=== PATIENT | female | born 1950 | race Caucasian/White ===

== ENCOUNTER → 2017-11-03 | Outpatient (CLI) | payer OTHER ==
[~2017-11-03] MED LIST: BIOTIN5000 MCG PO; BUMETANIDE2 M1 PO; CIMZIA400 MG IM; CIPROFLOXACIN500 M1 PO; FLAGYL500 MG PO; FOLIC ACID1 MG PO; GABAPENTIN 100100 MG PO; GLUCOSA-CHOND-1 EACH PO; HYDROCODONE-APA1 TA1 PO; LOVASTATIN 20 M20 MG PO; MAGNESIUM100 MG PO; METHOTREXATE 22.5 MG PO; MOBIC7.5 MG PO; NORCO 5-325 TA1 EACH PO; PERCOCET PO; POTASSIUM99 M1 PO; PROBIOTIC1 EAC1 PO; PROTONIX40 M1 PO; REQUIP0.5 MG PO; SPIRONOLACTONE25 M1 PO; TUMS PO; VANCOCIN 125 M125 M1 PO; VITAMIN B-12500 MCG PO; XARELTO10 MG PO; ZOFRAN ODT4 MG SUBLING
== END ==
LOC: M.MRI 06:42
DX: S83.232A Complex tear of medial meniscus, current injury, left knee, initial encounter (principal); S83.282A Other tear of lateral meniscus, current injury, left knee, initial encounter; X58.XXXA Exposure to other specified factors, initial encounter; Y93.89 Activity, other specified; Y92.89 Other specified places as the place of occurrence of the external cause; Y99.8 Other external cause status

== ENCOUNTER 2017-12-01 06:40 | Inpatient (IN) | payer OTHER ==
[2017-11-17 11:11] LABS: HEMATOCRIT 36.9 % (37.0-47.0); HEMOGLOBIN 11.9 gm/dL (12.0-15.0); MCH 26.2 pg (26.0-34.0); MCHC 32.2 g/dL (28.0-37.0); MCV 81.3 fL (80.0-100.0); MPV 7.1 fl. (7.2-11.1); RBC 4.54 mil/uL (4.20-5.00)
[2017-11-17 11:17] LABS: URINE BILIRUBIN NEGATIVE (Negative); URINE BLOOD NEGATIVE (Negative); URINE CLARITY CLEAR; URINE COLOR YELLOW; URINE GLUCOSE-RANDOM NEGATIVE (Negative); URINE KETONES NEGATIVE (Negative); URINE LEUKOCYTES-REFLEX 1+ (Negative); URINE NITRITE-REFLEX NEGATIVE (Negative); URINE PROTEIN NEGATIVE (Negative); URINE UROBILINOGEN 0.2 E.U./dl (0.2-1.0)
[2017-11-17 11:19] LABS: PROTIME 9.4 Seconds (9.20-11.50)
[2017-11-17 11:29] LABS: ALBUMIN 3.7 g/dL (3.4-5.0); CALCIUM 9.7 mg/dL (8.5-10.1); CREATININE 0.9 mg/dL (0.6-1.3); POTASSIUM 3.6 mmol/L (3.5-5.1); TOTAL BILIRUBIN 0.3 mg/dL (<0.1-1.0); TOTAL PROTEIN 7.2 g/dL (6.4-8.2)
[2017-11-17 11:37] LABS: BACTERIA-REFLEX 1-9 Few /HPF (None Seen); CASTS None Seen /LPF (None Seen); CRYSTALS None Seen /LPF (None Seen); MUCUS None Seen strn/LPF (None Seen); SQUAMOUS 4-10 Moderate /LPF (0-3); URINE RBC 0-2 Rare /HPF (0-2); URINE WBC-REFLEX 6-15 Few /HPF (0-5)
--- NOTE | 2017-11-18 13:35 | EKG ---
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: : 1950 Requested By: Oscar Miller Order Number: [id number] Richard MD: Dat Rahman Measurements Intervals [place] Rate: 83 P: 37 UT: 162 QRS: -21 QRSD: 92 T: 28 QT: 379 QTc: 446 Interpretive Statements Sinus rhythm Left ventricular hypertrophy, bivoltage Compared to ECG 04/06/2016 11:32:31 Early repolarization no longer present Electronically Signed On 11-18-2017 13:35:00 CDT by Dat Rahman [email or web address] <ELECTRONICALLY SIGNED> By: Dat Rahman MD, [facility] 11/18/17 1335 D: [id number] 20 Dat Rahman MD, FACC /EPI
[~2017-12-01] VITALS: Ht 160 cm; Wt 102.1 kg
[~2017-12-01 06:40] MED LIST changes: -PERCOCET PO; -XARELTO10 MG PO
[2017-12-01 07:27] VITALS: BP 129/62
[2017-12-01 11:30] VITALS: BP 125/55
[2017-12-01 12:01] VITALS: BP 125/55
[2017-12-01 16:13] VITALS: BP 117/47
[2017-12-01 20:45] VITALS: BP 123/64
[2017-12-02] VITALS: BP 117/45
[2017-12-02 04:21] VITALS: BP 128/56
[2017-12-02 04:46] LABS: HEMOGLOBIN 10.4 gm/dL (12.0-15.0)
[2017-12-02 08:00] VITALS: BP 118/62
[2017-12-02] MEDS ORDERED: PERCOCET PO (08:32)
[2017-12-02] MEDS ORDERED: XARELTO10 MG PO (08:33)
[2017-12-02 08:37] VITALS: BP 118/62
[2017-12-02 14:16] VITALS: BP 118/62
[2017-12-02 15:55] VITALS: BP 153/67
--- NOTE | 2017-12-02 22:46 | OP ---
[facility] [address] [place] [address] OPERATIVE REPORT Name: ROBERT MINER Room: [address] IN [facility]#: [id number] Admission: 12/01/17 Attend Phys: Joe Stone Discharge: 12/02/17 Date of : 48 Report #: [id number] THIS REPORT FOR: //name// CC: Oscar Tyson DATE OF SERVICE: 12/01/2017 PREOPERATIVE DIAGNOSIS: Left knee osteoarthritis. POSTOPERATIVE DIAGNOSIS: Left knee osteoarthritis. PROCEDURE: Left total knee arthroplasty. SURGEON: Oscar Millre II, DO. MOLASSES FEED MIXER: MARGO Odonnell. ANESTHESIA: General endotracheal. ESTIMATED BLOOD LOSS: 50 mL. ANTIBIOTIC: Ancef preoperatively. DRAINS: Medium Hemovac. COMPLICATIONS: None. CONDITION: The patient stable to recovery room. IMPLANTS: Listed in the operative record and progress note. BRIEF HISTORY: The patient was seen in the preoperative area. Preoperative H and P was performed. Site was marked. Questions were answered. Risks and benefits were discussed with the patient in detail about surgery. The patient wished to proceed and assumed all risks. DESCRIPTION OF PROCEDURE: The patient was taken to the operating room and placed supine on the operating room table in appropriate anesthesia. A well-padded tourniquet applied to upper thigh was inflated to 300 mmHg after gravity exsanguination. The operative knee was sterilely prepped and draped. Surgery was begun by midline incision. This was carried down to the subcutaneous tissues. A medial parapatellar arthrotomy was performed and carried down to bone. The patella was then everted and excess soft tissue was removed from around the femur. Femoral cutting block was then applied, checked [facility] [address] [place] [address] OPERATIVE REPORT Name: ROBERT MINER Room: [address]#: [id number] Admission: 12/01/17 Attend Phys: Joe Stone Discharge: 12/02/17 Date of : 48 Report #: [id number] with a drop susan for rotational alignment, pinned in appropriate position and appropriate cuts were made. A 4-in-1 cutting block was then applied and checked for rotation alignment, pinned in appropriate position and appropriate cuts were made. The tibia was then exposed. The excess meniscus was removed. Retractor was placed on the collateral ligaments. The tibial cutting block was applied, pinned in appropriate position and appropriate cuts were made. Tibia bone was removed. Tibial base plate was then applied and checked for rotational alignment with the drop susan and pinned in appropriate position. Femur was then applied and box cut was reamed. This was then trialed with the appropriate spacer, which was excellent fit, fill and excellent stability of the knee throughout all range of motion. The patella was then reamed in appropriate fashion and sized to appropriate size. Three peg holes were drilled. It was then trialed and showed excellent flexion and extension and excellent tracking of the patella within the groove. These trials were then removed. The tibia was punched in appropriate fashion. Bone ends were cleansed with Pulsavac irrigation and cement was mixed and applied to the final implants. These were then malleted in position, held the knee in extension and compressed while the cement cured. After it cured, excess was removed using a [place] and osteotome. The wound was then copiously irrigated and the final spacer was then malleted in position. Tourniquet was deflated. Hemostasis was obtained with electrocautery. The pain cocktail was injected and PRP gel was sprayed throughout the internal aspects of the knee. The medium Hemovac drain was applied. Capsule was closed with 2 FiberWire and 1 Vicryl in [id number] fashion. Skin was closed with 2-0 Vicryl and running 3-0 Monocryl. Dermabond and sterile dressing was applied. Nabil wrap and PolarCare applied. The patient transferred to the recovery room in stable condition. Counts were correct throughout the procedure. <ELECTRONICALLY SIGNED> By: Oscar Miller II, DO 12/02/17 2246 1251 1405Oscar Miller II, DO /nt
== END 2017-12-02 17:09 | disposition home health service (06) | DRG 470 ==
LOC: M.PRE 06:40 → M.TBA 06:45 → M.ORTHSURG 06:45 → M.PRE 07:05 → M.ORTHSURG 11:02 → M.PRE 14:17 → M.ORTHSURG 12-02 17:09
PROVIDERS: Orthopaedic Surgery; ADMIT Internal Medicine
PROC: 0SRD069 Replacement of Left Knee Joint with Oxidized Zirconium on Polyethylene Synthetic Substitute, Cemented, Open Approach (ICD-10-PCS; principal; 2017-12-01)
DX: M17.12 Unilateral primary osteoarthritis, left knee (principal); D62 Acute posthemorrhagic anemia; G25.81 Restless legs syndrome; K21.9 Gastro-esophageal reflux disease without esophagitis; G89.29 Other chronic pain; Z96.611 Presence of right artificial shoulder joint; Z88.0 Allergy status to penicillin; Z90.710 Acquired absence of both cervix and uterus; Z90.49 Acquired absence of other specified parts of digestive tract

== ENCOUNTER 2018-04-10 20:24 | Emergency (ER) | payer OTHER ==
[~2018-04-10] VITALS: Ht 160 cm; Wt 99.8 kg
[~2018-04-10 20:24] MED LIST changes: +PERCOCET PO; +XARELTO10 MG PO
[2018-04-10 20:39] LABS: URINE BILIRUBIN NEGATIVE (Negative); URINE BLOOD NEGATIVE (Negative); URINE CLARITY CLEAR; URINE COLOR YELLOW; URINE GLUCOSE-RANDOM NEGATIVE (Negative); URINE KETONES NEGATIVE (Negative); URINE NITRITE-REFLEX NEGATIVE (Negative); URINE PROTEIN NEGATIVE (Negative); URINE UROBILINOGEN 0.2 E.U./dl (0.2-1.0)
[2018-04-10 20:40] LABS: URINE LEUKOCYTES-REFLEX 3+ (Negative)
[2018-04-10 20:42] LABS: BACTERIA-REFLEX 1-9 Few /HPF (None Seen); CASTS None Seen /LPF (None Seen); CRYSTALS None Seen /LPF (None Seen); SQUAMOUS 0-3 Few /LPF (0-3); URINE RBC None Seen /HPF (0-2); URINE WBC-REFLEX 6-15 Few /HPF (0-5)
[2018-04-10] MEDS ORDERED: PROZAC20 MG PO (20:44)
[2018-04-10] MEDS ORDERED: MEDROLDOSEPACK PO (20:48)
[2018-04-10] MEDS ORDERED: ZANAFLEX4 MG PO (20:48)
[2018-04-10] MEDS ORDERED: IBUPROFEN 800800 M1 PO (20:48)
[2018-04-10] MEDS ORDERED: KEFLEX500 M1 PO (20:53)
[2018-04-10 21:34] VITALS: BP 130/61
== END 2018-04-10 21:34 | disposition home or self-care (01) ==
LOC: M.ERS 20:24
PROVIDERS: Nurse Practitioner Family
DX: N39.0 Urinary tract infection, site not specified (principal); K21.9 Gastro-esophageal reflux disease without esophagitis; G25.81 Restless legs syndrome; Z96.611 Presence of right artificial shoulder joint; Z88.0 Allergy status to penicillin; Z90.710 Acquired absence of both cervix and uterus; Z90.49 Acquired absence of other specified parts of digestive tract; Z98.890 Other specified postprocedural states

== ENCOUNTER 2018-04-15 17:34 | Emergency (ER) | payer OTHER ==
[~2018-04-15] VITALS: Ht 160 cm; Wt 99.8 kg
[~2018-04-15 17:34] MED LIST changes: +IBUPROFEN 800800 M1 PO; +KEFLEX500 M1 PO; +MEDROLDOSEPACK PO; +PROZAC20 MG PO; +ZANAFLEX4 MG PO
[2018-04-15 18:39] LABS: URINE BILIRUBIN NEGATIVE (Negative); URINE BLOOD TRACE (Negative); URINE CLARITY CLEAR; URINE COLOR YELLOW; URINE GLUCOSE-RANDOM NEGATIVE (Negative); URINE KETONES NEGATIVE (Negative); URINE LEUKOCYTES-REFLEX NEGATIVE (Negative); URINE NITRITE-REFLEX NEGATIVE (Negative); URINE PROTEIN NEGATIVE (Negative); URINE UROBILINOGEN 0.2 E.U./dl (0.2-1.0)
[2018-04-15] MEDS ORDERED: NORCO 5-325 TA1 EACH PO (19:39)
[2018-04-15] MEDS ORDERED: NABUMETONE 750750 M1 PO (19:40)
[2018-04-15 20:03] VITALS: BP 138/57
== END 2018-04-15 20:04 | disposition home or self-care (01) ==
LOC: M.ERS 17:34
PROVIDERS: Nurse Practitioner Family
DX: M51.16 Intervertebral disc disorders with radiculopathy, lumbar region (principal); K21.9 Gastro-esophageal reflux disease without esophagitis; G25.81 Restless legs syndrome; Z88.0 Allergy status to penicillin; Z90.710 Acquired absence of both cervix and uterus; Z96.611 Presence of right artificial shoulder joint; Z90.49 Acquired absence of other specified parts of digestive tract; Z98.890 Other specified postprocedural states

== ENCOUNTER → 2018-05-18 | Outpatient (CLI) | payer OTHER ==
[~2018-05-18] MED LIST changes: +NABUMETONE 750750 M1 PO
== END ==
LOC: M.RAD 10:17
DX: M47.895 Other spondylosis, thoracolumbar region (principal); M43.26 Fusion of spine, lumbar region

== ENCOUNTER 2018-07-25 10:59 | Inpatient (IN) | payer OTHER ==
[~2018-07-25] VITALS: Ht 160 cm; Wt 108.4 kg
[2018-07-25 11:09] VITALS: BP 125/56
[2018-07-25] MEDS ORDERED: FOLIC ACID1 MG PO (11:15)
[2018-07-25] MEDS ORDERED: METHOTREXATE 22.5 MG PO (11:15)
[2018-07-25 11:21] LABS: URINE BILIRUBIN NEGATIVE (Negative); URINE BLOOD NEGATIVE (Negative); URINE CLARITY CLOUDY; URINE COLOR YELLOW; URINE GLUCOSE-RANDOM NEGATIVE (Negative); URINE KETONES NEGATIVE (Negative); URINE LEUKOCYTES-REFLEX 1+ (Negative); URINE NITRITE-REFLEX NEGATIVE (Negative); URINE PROTEIN NEGATIVE (Negative); URINE UROBILINOGEN 0.2 E.U./dl (0.2-1.0)
[2018-07-25 11:26] LABS: SQUAMOUS >10 Many /LPF (0-3)
[2018-07-25 11:29] LABS: BACTERIA-REFLEX >30 Many /HPF (None Seen); CASTS None Seen /LPF (None Seen); CRYSTALS None Seen /LPF (None Seen); MUCUS 0-3 Light strn/LPF (None Seen); TRANSITIONAL EPITHEL CELL 0-3 Few /LPF (None Seen); URINE RBC 0-2 Rare /HPF (0-2); URINE WBC-REFLEX 6-15 Few /HPF (0-5)
[2018-07-25 11:53] LABS: ABSOLUTE EOSINOPHILS 0.4 thou/uL (0.0-0.7); ABSOLUTE MONOCYTES 0.4 thou/uL (0.0-1.2); ABSOLUTE NEUTROPHILS 6.8 thou/uL (1.6-8.1); BASOPHILS 0.2 %; EOSINOPHILS 4.3 %; HEMATOCRIT 29.3 % (37.0-47.0); HEMOGLOBIN 9.7 gm/dL (12.0-15.0); LYMPHOCYTES 20.9 %; MCHC 33.2 g/dL (28.0-37.0); MCV 78.5 fL (80.0-100.0); MONOCYTES 3.9 %; MPV 6.9 fl. (7.2-11.1); NUCLEATED RBCS 0 /100WBC; PLATELET COUNT* 431 thou/uL (150-400); POLYS 70.7 %; RBC 3.73 mil/uL (4.20-5.00); RDW-CV 19.9 % (10.5-14.5); WBC 9.6 thou/uL (4.0-11.0)
[2018-07-25 12:09] LABS: ANION GAP 7 mmol/L (7-16); BUN 15 mg/dL (7-18); CHLORIDE 101 mmol/L (98-107); CO2 32 mmol/L (21-32); CREATININE 1.1 mg/dL (0.6-1.3); GLUCOSE 96 mg/dL (70-99); SODIUM 140 mmol/L (136-145); TROPONIN-I LEVEL <0.06 ng/mL (<0.06)
[2018-07-25 12:12] LABS: ALBUMIN 3.1 g/dL (3.4-5.0); ALKALINE PHOSPHATASE 92 U/L (46-116); NT-PRO BRAIN NAT PEPTIDE 189 pg/mL (<300); SGOT 17 U/L (15-37); SGPT 16 U/L (30-65); TOTAL BILIRUBIN 0.3 mg/dL (<0.1-1.0); TOTAL PROTEIN 6.9 g/dL (6.4-8.2)
[2018-07-25 14:45] VITALS: BP 121/44
[2018-07-25 15:03] VITALS: BP 114/42
[2018-07-25] MEDS ORDERED: POTASSIUM20 PO (15:46)
--- NOTE | 2018-07-25 18:45 | NUR ---
RECEIVED REPORT FROM SUSU ROMO IN ER. PT TRANSFERRED TO TELE FLOOR AROUND 1445, ASSUMED CARE. PT A&O X4. VSS. CLINICAL ASSISTANT PROFESSOR PLACED TRACING SR. ADMISSON HISTORY, ASSESSMENT AND EDUCATION COMPLETED CHARTED. IV TO RIGHT AC INTACT AND SALINE LOCKED. PT HAS DENIED PAIN OR DISCOMFORT THIS SHIFT. PT TO BE NPO AT MIDNIGHT FOR CARDIOLOGY CONSULT IN AM. ECHO ALSO PLANNED FOR TOMORROW. DAUGHTER AT BEDSIDE FOR A WHILE. PT UP WITH SBA TO BATHROOM TO VOID. TOLERATING DIET. PT WATCHING TV IN BED. ALL NEEDS MET AT THIS TIME. FALL PRECAUTIONS IN PLACE. CALL LIGHT IS WITHIN REACH. HOURLY ROUNDING PERFORMED.
[2018-07-25 20:00] VITALS: BP 126/51
[2018-07-26] VITALS: BP 118/43
[2018-07-26 04:00] VITALS: BP 103/45
--- NOTE | 2018-07-26 04:33 | NUR ---
ASSUMED PT CARE AT 1930. NURSING ASSESSMENT COMPLETED AT START OF SHIFT. PT SINUS RHYTHM ON CHECK OUT CLERK. C/O RESTLESS LEGS AND REQUESTING REQUIP HOME DOSE. DR. MEREDITH NOTIFIED, NEW ORDERS RECEIVED. HOURLY ROUNDING COMPLETED. FALL PRECAUTIONS IN PLACE, CALL LIGHT WITHIN REACH.
--- NOTE | 2018-07-26 08:00 | NUR ---
ASSUMED PT CARE AT 0700, A&O X4, RA, LS CTA, WAD BLANKING PRESS ADJUSTER TRACING SINUS RHYTHM WITH MURMUR. PT UP WITH ASSIST X1 AND CANE, PT REMAINS NPO FOR CARDIOLOGY CONSULT, WILL THEN CHANGE TO HEART HEALTHY DIET. 3+ NON PITTING EDEMA TO BLE UP TO KNEES, PT DENIES HAVING THIS AMOUNT OF EDEMA AT HOME, EDUCATION GIVEN ON ELEVATING FEET WHEN SITTING IN CHAIR, PT STATES UNDERSTANDING. WILL CONT POC.
[2018-07-26 08:31] LABS: ABSOLUTE BASOPHILS 0.1 thou/uL (0.0-0.2); ABSOLUTE EOSINOPHILS 0.3 thou/uL (0.0-0.7); ABSOLUTE LYMPHOCYTES 1.4 thou/uL (0.8-5.3); ABSOLUTE MONOCYTES 0.5 thou/uL (0.0-1.2); ABSOLUTE NEUTROPHILS 5.3 thou/uL (1.6-8.1); BASOPHILS 1.1 %; EOSINOPHILS 3.7 %; HEMATOCRIT 28.6 % (37.0-47.0); HEMOGLOBIN 9.4 gm/dL (12.0-15.0); LYMPHOCYTES 18.6 %; MCH 25.8 pg (26.0-34.0); MCHC 32.9 g/dL (28.0-37.0); MCV 78.4 fL (80.0-100.0); MONOCYTES 6.3 %; MPV 6.6 fl. (7.2-11.1); NUCLEATED RBCS 0 /100WBC; PLATELET COUNT* 395 thou/uL (150-400); POLYS 70.3 %; RBC 3.65 mil/uL (4.20-5.00); RDW-CV 20.2 % (10.5-14.5); WBC 7.6 thou/uL (4.0-11.0)
[2018-07-26 08:45] LABS: CALCIUM 9.4 mg/dL (8.5-10.1); CREATININE 0.9 mg/dL (0.6-1.3); POTASSIUM 4.2 mmol/L (3.5-5.1); TOTAL BILIRUBIN 0.3 mg/dL (<0.1-1.0); TOTAL PROTEIN 6.8 g/dL (6.4-8.2)
[2018-07-26 10:18] LABS: ANISOCYTOSIS 1+; PLATELET ESTIMATE ADEQUATE; POIKILOCYTOSIS 1+
[2018-07-26 10:19] LABS: MICROCYTES Occasional; POLYCHROMASIA Occasional
[2018-07-26 10:23] LABS: CHOLESTEROL 144 mg/dL (<200); HDL CHOLESTEROL 47 mg/dL (>40); LDL CHOLESTEROL 81 mg/dL (<100); TC:HDL 3.1 Ratio (Not establshd); TRIGLYCERIDE 80 mg/dL (<150); VLDL 16 mg/dL (<40)
[2018-07-26 10:25] LABS: SERUM ASSESSMENT Clear
[2018-07-26 11:22] VITALS: BP 136/54
[2018-07-26 15:32] VITALS: BP 124/50
--- NOTE | 2018-07-26 15:37 | 2DMMODE ---
[place] [address] 2 D/M-MODE ECHOCARDIOGRAM Name: ROBERT MINER Room: [address] IN [facility]#: [id number] Admission: 07/25/18 Attend Phys: Vernon Tyson Discharge: Date of : 48 Date of Service: 07/26/18 1537 Report #: [id number] THIS REPORT FOR: //name// APPROVED REPORT Study performed: 07/26/2018 09:24:42 EXAM: Comprehensive 2D, Doppler, and color-flow Echocardiogram Patient Location: In-Patient Room #: 208 Status: routine BSA: 2.05 HR: 71 bpm BP: 103/45 mmHg Rhythm: NSR Other Information Study Quality: Good Indications Murmur 2D Dimensions IVSd: 11.27 (7-11mm) LVOT Diam: 18.98 (18-24mm) LVDd: 46.96 mm PWd: 10.60 (7-11mm) Ascending Ao: 32.42 (22-36mm) LVDs: 28.25 (25-40mm) Aortic Root: 27.23 mm Volumes Left Atrial Volume (Systole) LA ESV Index: 38.10 mL/m2 Aortic Valve AoV Peak Víctor.: 2.97 m/s AO Peak Gr.: 35.28 mmHg LVOT Max P.37 mmHg AO Mean Gr.: 19.50 mmHg LVOT Mean P.50 mmHg LVOT Max V: 1.16 m/s AO V2 VTI: 70.89 cm LVOT Mean V: 0.71 m/s ANJELICA (VTI): 1.20 cm2 LVOT V1 VTI: 30.12 cm AI [place]: 2.68 m/s2 AI PHT: 376.89 ms Mitral Valve E/A Ratio: 1.03 [place] [address] 2 D/M-MODE ECHOCARDIOGRAM Name: ROBERT MINER SUPRIYA Room: [address] IN .R.#: [id number] Admission: 07/25/18 Attend Phys: Vernon Tyson Discharge: Date of : 48 Date of Service: 07/26/18 1537 Report #: [id number] MV Decel. Time: 225.77 ms MV E Max Víctor.: 1.38 m/s MV PHT: 65.47 ms MVA (PHT): 3.36 cm2 TDI E/Lateral E': 9.20 E/Medial E': 10.62 Medial E' Víctor.: 0.13 m/s Lateral E' Víctor.: 0.15 m/s Pulmonary Valve PV Peak Víctor.: 1.12 m/s PV Peak Gr.: 5.06 mmHg Tricuspid Valve RAP Estimate: 5.00 mmHg TR Peak Gr.: 24.87 mmHg RVSP: 29.00 mmHg PA Pressure: 29.00 mmHg Left Ventricle The left ventricle is normal size. There is normal LV segmental wall motion. There is normal left ventricular wall thickness. Left ventricular systolic function is normal. The left ventricular ejection fraction is within the normal range. LVEF is 60-65%. The left ventricular diastolic function is normal. Right Ventricle The right ventricle is normal size. The right ventricular systolic function is normal. Atria Left atrium is mildly dilated. The right atrium size is normal. Aortic Valve Moderate aortic valve sclerosis. Mild aortic regurgitation. Mild aortic stenosis. Mitral Valve The mitral valve is normal in structure. Mild to moderate mitral regurgitation. No evidence of mitral valve stenosis. Tricuspid Valve The tricuspid valve is normal in structure. Trace tricuspid regurgitation. No pulmonary hypertension[place] [address] 2 D/M-MODE ECHOCARDIOGRAM Name: ROBERT MINER [facility] Room: [address] IN [facility]#: [id number] Admission: 07/25/18 Attend Phys: Vernon Tyson Discharge: Date of : 48 Date of Service: 07/26/18 1537 Report #: [id number] The pulmonary valve is normal in structure. There is no pulmonic valvular regurgitation. Great Vessels The aortic root is normal in size. IVC is normal in size and collapses >50% with inspiration. Pericardium There is no pericardial effusion. <Conclusion> The left ventricle is normal size. There is normal left ventricular wall thickness. Left ventricular systolic function is normal. The left ventricular ejection fraction is within the normal range. LVEF is 60-65%. The left ventricular diastolic function is normal. The right ventricle is normal size. Left atrium is mildly dilated. Moderate aortic valve sclerosis. Mild aortic regurgitation. Mild aortic stenosis. The mitral valve is normal in structure. Mild to moderate mitral regurgitation. No evidence of mitral valve stenosis. The tricuspid valve is normal in structure. There is no pericardial effusion. There is normal LV segmental wall motion. <ELECTRONICALLY SIGNED> By: Hamlet Serrano MD, FACC 07/26/18 1537 153 153 Hamlet Serrano MD, FACC /INF
--- NOTE | 2018-07-26 15:55 | NUR ---
Pt is A&O. Resides at home alone. Independent. Pt has a walker and cane at home that she can use for mobility. Hx of [facility]. No hx of SNF. Goal is home at [place]. Following.
--- NOTE | 2018-07-26 18:35 | NUR ---
PT UP IN CHAIR FOR ALL MEALS, A&O X4, VSS, CONT TO HAVE 3+ EDEMA TO BLE, LS REMAIN CTA, ECHO SHOWED EF OF 60%, EDUCATED PT ON FINDINGS, HOWEVER, [facility] "[facility]". SHE ALSO STATES SHE IS "TIRED OF BEING TOLD SHE IS OK". THIS NURSE EDUCATED PT OF HER EF AND THAT ECHO WAS NORMAL PER DR PEARSON, PT ALSO INFORMED THAT IF SHE HAD MORE DETAILED QUESTIONS, THE FLY RAISER LOCKSTITCH WOULD NEED TO ADDRESS THEM BUT FOR NOW, THE PLAN IS TO DIURESE PT ACCORDING TO OUMOU HERNANDEZ, [place] AND WILL BE IN TOMORROW MORNING TO DISCUSS FURTHER DETAILS. OUMOU BARRIENTOS ALSO S/W PT AND FAMILY AND EDUCATED ON FINDINGS. PT STATES UNDERSTANDING. HOURLY ROUNDING COMPLETED, GOALS OF SAFETY MAINTAINED, UP WITH STANDBY AND CANE.
[2018-07-26 20:00] VITALS: BP 121/48
[2018-07-27] VITALS: BP 99/35
[2018-07-27 04:00] VITALS: BP 116/43
[2018-07-27 05:51] LABS: URINE BILIRUBIN NEGATIVE (Negative); URINE BLOOD NEGATIVE (Negative); URINE CLARITY CLEAR; URINE COLOR YELLOW; URINE GLUCOSE-RANDOM NEGATIVE (Negative); URINE KETONES NEGATIVE (Negative); URINE LEUKOCYTES-REFLEX NEGATIVE (Negative); URINE NITRITE-REFLEX NEGATIVE (Negative); URINE PROTEIN NEGATIVE (Negative); URINE UROBILINOGEN 0.2 E.U./dl (0.2-1.0)
--- NOTE | 2018-07-27 06:20 | NUR ---
ASSUMED PT CARE AT 1930. NURSING ASSESSMENT COMPLETED. SINUS RHYTHM ON DUCT INSTALLER. HOURLY ROUNDING COMPLETED. PT REQUESTED SLEEP AID THIS SHIFT TOWARDS START OF SHIFT. NEW ORDERS RECEIVED FROM DR. REYNOSO. PT OBSERVED TO BE ASLEEP BEFORE SLEEP AID GIVEN. CALL LIGHT REMAINS WITHIN REACH.
[2018-07-27 08:00] VITALS: BP 92/40
--- NOTE | 2018-07-27 08:00 | NUR ---
PT A&O X4, VSS, UP WITH ASSIST X1 AND CANE. SPECIALTY THERAPIST TRACING SINUS RHYTHM, RA, LS CTA. 3+ EDEMA TO BLE, PT EDUCATED ON ELEVATING LE AND COMPRESSION STOCKINGS/WRAPS. DENIES ANY PAIN/SOA. POSSIBLE DC HOME THIS SHIFT.
--- NOTE | 2018-07-27 10:00 | EKG ---
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
[2018-07-27] MEDS ORDERED: PREDNISONE 10 M10 MG PO (10:10)
--- NOTE | 2018-07-27 16:40 | NUR ---
PT DISCHARGED UNIT AT APPROX 1635 VIA WHEELCHAIR WITH NURSING STAFF AND DAUGHTER. EDUCATED ON DISCHARGE INSTRUCTIONS INCLUDING MEDICATIONS AND FOLLOW UP APPTS. HOURLY ROUNDING COMPLETED, GOALS MAINTAINED AND ACHIEVED FOR SAFETY AND BREATHING.
== END 2018-07-27 16:35 | disposition home or self-care (01) | DRG 292 ==
LOC: M.ERS 10:59 → M.TBA-ER 13:28 → M.2W 13:28
PROVIDERS: Physician Assistant; Registered Nurse; ADMIT Internal Medicine
DX: I50.33 Acute on chronic diastolic (congestive) heart failure (principal); Z68.41 Body mass index [BMI] 40.0-44.9, adult; E66.01 Morbid (severe) obesity due to excess calories; I08.1 Rheumatic disorders of both mitral and tricuspid valves; G89.29 Other chronic pain; G25.81 Restless legs syndrome; K21.9 Gastro-esophageal reflux disease without esophagitis; M54.9 Dorsalgia, unspecified; M54.30 Sciatica, unspecified side; E78.5 Hyperlipidemia, unspecified; M19.90 Unspecified osteoarthritis, unspecified site; D64.9 Anemia, unspecified; Z79.899 Other long term (current) drug therapy; Z88.0 Allergy status to penicillin; Z79.1 Long term (current) use of non-steroidal anti-inflammatories (NSAID); Z90.710 Acquired absence of both cervix and uterus; Z90.49 Acquired absence of other specified parts of digestive tract

== ENCOUNTER 2018-09-15 13:46 | Inpatient (IN) | payer OTHER ==
[~2018-09-15] VITALS: Ht 160 cm; Wt 106.6 kg
[~2018-09-15 13:46] MED LIST changes: +POTASSIUM20 PO; +PREDNISONE 10 M10 MG PO
[2018-09-15 13:56] VITALS: BP 142/57
[2018-09-15 14:28] LABS: ABSOLUTE BASOPHILS 0.1 thou/uL (0.0-0.2); ABSOLUTE EOSINOPHILS 0.6 thou/uL (0.0-0.7); ABSOLUTE LYMPHOCYTES 1.7 thou/uL (0.8-5.3); ABSOLUTE MONOCYTES 1.2 thou/uL (0.0-1.2); ABSOLUTE NEUTROPHILS 8.6 thou/uL (1.6-8.1); BASOPHILS 0.7 %; EOSINOPHILS 4.8 %; HEMATOCRIT 32.1 % (37.0-47.0); HEMOGLOBIN 10.3 gm/dL (12.0-15.0); LYMPHOCYTES 14.1 %; MCH 26.7 pg (26.0-34.0); MCHC 32.2 g/dL (28.0-37.0); MONOCYTES 9.6 %; MPV 7.1 fl. (7.2-11.1); NUCLEATED RBCS 0 /100WBC; PLATELET COUNT* 399 thou/uL (150-400); POLYS 70.8 %; RBC 3.87 mil/uL (4.20-5.00); RDW-CV 22.3 % (10.5-14.5); WBC 12.2 thou/uL (4.0-11.0)
[2018-09-15 14:38] LABS: CALCIUM 9.7 mg/dL (8.5-10.1); CREATININE 0.9 mg/dL (0.6-1.3); POTASSIUM 3.8 mmol/L (3.5-5.1)
[2018-09-15 14:45] LABS: ALBUMIN 3.5 g/dL (3.4-5.0); TOTAL BILIRUBIN 0.5 mg/dL (<0.1-1.0); TOTAL PROTEIN 7.3 g/dL (6.4-8.2)
[2018-09-15 14:46] LABS: PLATELET ESTIMATE ADEQUATE
[2018-09-15 15:41] LABS: URINE BILIRUBIN NEGATIVE (Negative); URINE BLOOD NEGATIVE (Negative); URINE CLARITY CLEAR; URINE COLOR YELLOW; URINE GLUCOSE-RANDOM NEGATIVE (Negative); URINE KETONES TRACE (Negative); URINE LEUKOCYTES-REFLEX 1+ (Negative); URINE NITRITE-REFLEX NEGATIVE (Negative); URINE PROTEIN NEGATIVE (Negative); URINE UROBILINOGEN 0.2 E.U./dl (0.2-1.0)
[2018-09-15 15:46] LABS: SQUAMOUS >10 Many /LPF (0-3); URINE RBC 0-2 Rare /HPF (0-2)
[2018-09-15 15:47] LABS: URINE WBC-REFLEX 6-15 Few /HPF (0-5)
[2018-09-15 15:48] LABS: BACTERIA-REFLEX 1-9 Few /HPF (None Seen); CASTS None Seen /LPF (None Seen); CRYSTALS None Seen /LPF (None Seen)
--- NOTE | 2018-09-15 17:50 | NUR ---
PT GIVEN DINNER TRAY.
[2018-09-15 17:56] VITALS: BP 124/43
[2018-09-15 18:05] VITALS: BP 114/29
[2018-09-15 20:20] VITALS: BP 127/43
[2018-09-16 04:54] LABS: ABSOLUTE BASOPHILS 0.1 thou/uL (0.0-0.2); ABSOLUTE EOSINOPHILS 0.7 thou/uL (0.0-0.7); ABSOLUTE MONOCYTES 1.3 thou/uL (0.0-1.2); ABSOLUTE NEUTROPHILS 9.3 thou/uL (1.6-8.1); BASOPHILS 0.4 %; EOSINOPHILS 5.1 %; HEMATOCRIT 27.4 % (37.0-47.0); HEMOGLOBIN 8.9 gm/dL (12.0-15.0); LYMPHOCYTES 15.3 %; MCH 27.1 pg (26.0-34.0); MCHC 32.4 g/dL (28.0-37.0); MCV 83.6 fL (80.0-100.0); MONOCYTES 9.8 %; MPV 7.2 fl. (7.2-11.1); NUCLEATED RBCS 0 /100WBC; PLATELET COUNT* 337 thou/uL (150-400); POLYS 69.4 %; RBC 3.27 mil/uL (4.20-5.00); RDW-CV 22.3 % (10.5-14.5); WBC 13.4 thou/uL (4.0-11.0)
[2018-09-16 05:07] LABS: CALCIUM 8.9 mg/dL (8.5-10.1); CREATININE 0.9 mg/dL (0.6-1.3); POTASSIUM 4.2 mmol/L (3.5-5.1)
[2018-09-16 05:28] LABS: CHOLESTEROL 119 mg/dL (<200); HDL CHOLESTEROL 41 mg/dL (>40); LDL CHOLESTEROL 63 mg/dL (<100); TC:HDL 2.9 Ratio (Not establshd); TRIGLYCERIDE 76 mg/dL (<150); VLDL 15 mg/dL (<40)
[2018-09-16 05:30] LABS: SERUM ASSESSMENT CLEAR
[2018-09-16 05:31] LABS: % SATURATION 16 % (20-39); IRON 36 ug/dL (50-175)
--- NOTE | 2018-09-16 05:47 | NUR ---
PT ALERT AN ORIENTED. VSS ON RA. PT VOICED SHE WAS UNCOMFORTABLE IN THE BED. PT SLEPT ON RECLINER MORE THAN HALF SHIFT. MEDS GIVEN PER EMAR. PAIN MED GIVEN X1 THIS SHIFT. RELIEF NOTED. PT TO BATHROOM WITH WHEELCHAIR AND STANDBY ASSIST. NPO AFTER MIDNIGHT. HOURLY ROUNDINGS MADE. CALL LIGHT WITHIN REACH. WILL CONTINUE PLAN OF CARE.
[2018-09-16 06:33] LABS: MICROCYTES 2+
[2018-09-16 06:34] LABS: HYPOCHROMASIA 1+; PLATELET ESTIMATE ADEQUATE
[2018-09-16 07:50] VITALS: BP 94/36
--- NOTE | 2018-09-16 13:20 | NUR ---
SW met with pt to complete initial assessment, introduce self, and SW role. Pt alert, oriented, eating lunch. Pt lives at home alone. Pt has a dtr in [facility] and a dtr who lives in [place]. Pt has a RW and a cane. Pt has hx of HH with [facility]. Pt unsure of any dc needs at this time but seemed interested in HH RN if needed. SW to continue to follow to assist with safe dc planning.
[2018-09-16 14:12] LABS: CALCIUM 8.9 mg/dL (8.5-10.1); CREATININE 0.9 mg/dL (0.6-1.3); PHOSPHORUS* 4.6 mg/dL (2.5-4.9)
[2018-09-16] MEDS ORDERED: CALCIUM 600 +1 EAC1 PO (14:33)
[2018-09-16] MEDS ORDERED: BACTRIM DS TAB1 EACH PO (14:34)
[2018-09-16] MEDS ORDERED: NORCO 5-325 TA1 EACH PO (14:46)
[2018-09-16] MEDS ORDERED: SENNA PLUS TAB1 EACH PO (14:46)
[2018-09-16 14:52] VITALS: BP 94/36
[2018-09-16 16:18] VITALS: BP 94/36
--- NOTE | 2018-09-16 16:45 | NUR ---
PATIENT DISCHARGED TO HOME WITH HOME HEALTH. DISCHARGE PAPERS REVIEWED AND SIGNED. PRESCRIPTION AND INFORMATION SHEETS GIVEN. IV REMOVED. PATIENT DENIES ANY FURTHER NEEDS. PATIENT TAKEN BY WHEELCHAIR TO EXIT. LEFT WITH DAUGHTER.
== END 2018-09-16 16:45 | disposition home health service (06) | DRG 543 ==
LOC: M.ERS 13:46 → M.3W 17:09 → M.TBA-ER 17:09 → M.3W 18:00
PROVIDERS: Nurse Practitioner Family; Orthopaedic Surgery; ADMIT Family Medicine
DX: M84.454A Pathological fracture, pelvis, initial encounter for fracture (principal); I50.32 Chronic diastolic (congestive) heart failure; N30.00 Acute cystitis without hematuria; I13.0 Hypertensive heart and chronic kidney disease with heart failure and stage 1 through stage 4 chronic kidney disease, or unspecified chronic kidney disease; Z96.611 Presence of right artificial shoulder joint; G25.81 Restless legs syndrome; K21.9 Gastro-esophageal reflux disease without esophagitis; Z96.652 Presence of left artificial knee joint; N18.3 Chronic kidney disease, stage 3 (moderate); I34.0 Nonrheumatic mitral (valve) insufficiency; M45.9 Ankylosing spondylitis of unspecified sites in spine; W18.39XA Other fall on same level, initial encounter; M81.0 Age-related osteoporosis without current pathological fracture; Z90.710 Acquired absence of both cervix and uterus; Z90.49 Acquired absence of other specified parts of digestive tract; Z88.0 Allergy status to penicillin; Y93.89 Activity, other specified; Y92.89 Other specified places as the place of occurrence of the external cause; Y99.8 Other external cause status

== ENCOUNTER → 2018-10-26 | Outpatient (CLI) | payer OTHER ==
[~2018-10-26] MED LIST changes: +BACTRIM DS TAB1 EACH PO; +CALCIUM 600 +1 EAC1 PO; +SENNA PLUS TAB1 EACH PO
== END ==
LOC: M.RAD 09:36
DX: S32.9XXG Fracture of unspecified parts of lumbosacral spine and pelvis, subsequent encounter for fracture with delayed healing (principal); M16.0 Bilateral primary osteoarthritis of hip; W19.XXXD Unspecified fall, subsequent encounter

== ENCOUNTER → 2018-11-24 | Outpatient (CLI) | payer OTHER | LOC: M.RAD 10:48 | DX: S32.591A Other specified fracture of right pubis, initial encounter for closed fracture (principal); X58.XXXA Exposure to other specified factors, initial encounter; Y93.89 Activity, other specified; Y92.89 Other specified places as the place of occurrence of the external cause; Y99.8 Other external cause status ==

== ENCOUNTER → 2018-12-02 | Outpatient (CLI) | payer OTHER | LOC: M.RAD 10:12 | DX: M81.0 Age-related osteoporosis without current pathological fracture (principal); Z78.0 Asymptomatic menopausal state ==

== ENCOUNTER → 2018-12-23 | Outpatient (CLI) | payer OTHER | LOC: M.RAD 10:07 | DX: S32.599A Other specified fracture of unspecified pubis, initial encounter for closed fracture (principal); M43.26 Fusion of spine, lumbar region; X58.XXXA Exposure to other specified factors, initial encounter; Y93.89 Activity, other specified; Y92.89 Other specified places as the place of occurrence of the external cause; Y99.8 Other external cause status ==

== ENCOUNTER → 2019-02-21 | Outpatient (CLI) | payer OTHER ==
[~2019-02-21] MED LIST changes: +ENBREL25 MG/0.5 SUBQ; +FLEXERIL PO; +FOSAMAX 70 MG T70 MG PO; +NORCO 5-325 TA1 EAC1 PO; +PROZAC 20 MG20 MG PO; +[UNRECOGNIZED DRUG - OTHER]
== END ==
LOC: M.RAD 11:35
DX: S32.511G Fracture of superior rim of right pubis, subsequent encounter for fracture with delayed healing (principal); S32.591G Other specified fracture of right pubis, subsequent encounter for fracture with delayed healing; M79.672 Pain in left foot; X58.XXXD Exposure to other specified factors, subsequent encounter

== ENCOUNTER 2019-03-13 07:28 | Emergency (ER) | payer OTHER ==
[~2019-03-13] VITALS: Ht 165.1 cm; Wt 103.9 kg
[~2019-03-13 07:28] MED LIST changes: -ENBREL25 MG/0.5 SUBQ; -FLEXERIL PO; -FOSAMAX 70 MG T70 MG PO; -NORCO 5-325 TA1 EAC1 PO; -PROZAC 20 MG20 MG PO; -[UNRECOGNIZED DRUG - OTHER]
[2019-03-13] MEDS ORDERED: [UNRECOGNIZED DRUG - OTHER] (07:41)
[2019-03-13] MEDS ORDERED: FOSAMAX 70 MG T70 MG PO (07:50)
[2019-03-13] MEDS ORDERED: PROZAC 20 MG20 MG PO (07:50)
[2019-03-13] MEDS ORDERED: ENBREL25 MG/0.5 SUBQ (07:51)
[2019-03-13] MEDS ORDERED: NORCO 5-325 TA1 EAC1 PO (08:26)
[2019-03-13] MEDS ORDERED: FLEXERIL PO (08:26)
[2019-03-13 08:41] VITALS: BP 127/40
== END 2019-03-13 08:42 | disposition home or self-care (01) ==
LOC: M.ERS 07:28
DX: M25.551 Pain in right hip (principal); G25.81 Restless legs syndrome; M81.0 Age-related osteoporosis without current pathological fracture; I50.9 Heart failure, unspecified; N18.3 Chronic kidney disease, stage 3 (moderate); Z88.0 Allergy status to penicillin; K21.9 Gastro-esophageal reflux disease without esophagitis; Z90.710 Acquired absence of both cervix and uterus; Z90.49 Acquired absence of other specified parts of digestive tract; Z98.890 Other specified postprocedural states; Z96.652 Presence of left artificial knee joint

== ENCOUNTER 2019-05-06 18:23 | Inpatient (IN) | payer MEDICARE ==
[~2019-05-06] VITALS: Ht 160 cm; Wt 110.7 kg
[~2019-05-06 18:23] MED LIST changes: +ENBREL25 MG/0.5 SUBQ; +FLEXERIL PO; +FOSAMAX 70 MG T70 MG PO; +NORCO 5-325 TA1 EAC1 PO; +PROZAC 20 MG20 MG PO; +[UNRECOGNIZED DRUG - OTHER]
[2019-05-06 18:34] VITALS: BP 148/53
[2019-05-06] MEDS ORDERED: KEFLEX500 M1 PO (18:40)
[2019-05-06 19:20] LABS: ABSOLUTE BASOPHILS 0.1 thou/uL (0.0-0.2); ABSOLUTE EOSINOPHILS 0.6 thou/uL (0.0-0.7); ABSOLUTE MONOCYTES 2.2 thou/uL (0.0-1.2); ABSOLUTE NEUTROPHILS 7.7 thou/uL (1.6-8.1); BASOPHILS 0.8 %; EOSINOPHILS 4.4 %; HEMATOCRIT 30.9 % (37.0-47.0); LYMPHOCYTES 16.2 %; MCH 27.1 pg (26.0-34.0); MCHC 32.4 g/dL (28.0-37.0); MCV 83.5 fL (80.0-100.0); MONOCYTES 17.2 %; NUCLEATED RBCS 0 /100WBC; PLATELET COUNT* 412 thou/uL (150-400); POLYS 61.4 %; RDW-CV 22.4 % (10.5-14.5); WBC 12.6 thou/uL (4.0-11.0)
[2019-05-06 19:28] LABS: POTASSIUM 3.9 mmol/L (3.5-5.1)
[2019-05-06 19:33] LABS: ALBUMIN 3.5 g/dL (3.4-5.0); TOTAL BILIRUBIN 0.4 mg/dL (<0.1-1.0); TOTAL PROTEIN 7.6 g/dL (6.4-8.2)
[2019-05-06 19:37] LABS: ANISOCYTOSIS 1+; PLATELET ESTIMATE INCREASED
[2019-05-06 19:41] LABS: POIKILOCYTOSIS 1+
[2019-05-06 20:46] VITALS: BP 142/77
[2019-05-06 21:15] VITALS: BP 138/40
[2019-05-07] MEDS ORDERED: METHOTREXATE 22.5 M1 PO (00:26)
[2019-05-07] MEDS ORDERED: ENBREL50 MG/1 ML INJECTION (00:30)
[2019-05-07 04:01] LABS: HEMATOCRIT 28.9 % (37.0-47.0); HEMOGLOBIN 9.3 gm/dL (12.0-15.0); MCH 27.2 pg (26.0-34.0); MCHC 32.3 g/dL (28.0-37.0); MCV 84.2 fL (80.0-100.0); MPV 7.1 fl. (7.2-11.1); PLATELET COUNT* 380 thou/uL (150-400); RBC 3.43 mil/uL (4.20-5.00); RDW-CV 21.7 % (10.5-14.5); WBC 11.6 thou/uL (4.0-11.0)
[2019-05-07 04:12] LABS: CALCIUM 7.9 mg/dL (8.5-10.1); POTASSIUM 4.2 mmol/L (3.5-5.1)
[2019-05-07 08:17] VITALS: BP 107/46
[2019-05-07 11:08] LABS: ABSOLUTE BASOPHILS 0.1 thou/uL (0.0-0.2); ABSOLUTE EOSINOPHILS 0.7 thou/uL (0.0-0.7); ABSOLUTE LYMPHOCYTES 1.4 thou/uL (0.8-5.3); ABSOLUTE MONOCYTES 1.6 thou/uL (0.0-1.2); ABSOLUTE NEUTROPHILS 7.8 thou/uL (1.6-8.1); ANISOCYTOSIS 1+; PLATELET ESTIMATE ADEQUATE; POIKILOCYTOSIS 1+
[2019-05-07 16:00] VITALS: BP 142/49
[2019-05-07 22:47] VITALS: BP 120/40
[2019-05-08 04:36] LABS: HEMATOCRIT 27.1 % (37.0-47.0); HEMOGLOBIN 8.8 gm/dL (12.0-15.0); MCH 27.2 pg (26.0-34.0); MCHC 32.5 g/dL (28.0-37.0); MCV 83.7 fL (80.0-100.0); MPV 7.5 fl. (7.2-11.1); RBC 3.24 mil/uL (4.20-5.00); RDW-CV 21.3 % (10.5-14.5); WBC 14.1 thou/uL (4.0-11.0)
[2019-05-08 09:24] VITALS: BP 133/46
[2019-05-08 11:17] VITALS: BP 133/46
[2019-05-08] MEDS ORDERED: PROBIOTIC1 EAC7 PO (12:41)
[2019-05-08] MEDS ORDERED: CLEOCIN HCL150 MG PO (13:03)
== END 2019-05-08 13:59 | disposition home or self-care (01) | DRG 872 ==
LOC: M.ERS 18:23 → M.ORTHSURG 19:15 → M.TBA-ER 19:15 → M.ORTHSURG 21:03
PROVIDERS: Physician Assistant; ADMIT Family Medicine
DX: A41.9 Sepsis, unspecified organism (principal); S32.591A Other specified fracture of right pubis, initial encounter for closed fracture; L03.116 Cellulitis of left lower limb; L03.115 Cellulitis of right lower limb; I50.32 Chronic diastolic (congestive) heart failure; Z96.611 Presence of right artificial shoulder joint; K21.9 Gastro-esophageal reflux disease without esophagitis; Z96.652 Presence of left artificial knee joint; N18.3 Chronic kidney disease, stage 3 (moderate); M81.0 Age-related osteoporosis without current pathological fracture; G56.03 Carpal tunnel syndrome, bilateral upper limbs; G25.81 Restless legs syndrome; I87.2 Venous insufficiency (chronic) (peripheral); G89.29 Other chronic pain; R10.2 Pelvic and perineal pain; M45.9 Ankylosing spondylitis of unspecified sites in spine; I34.0 Nonrheumatic mitral (valve) insufficiency; Z90.710 Acquired absence of both cervix and uterus; W18.39XA Other fall on same level, initial encounter; Z87.81 Personal history of (healed) traumatic fracture; Z79.899 Other long term (current) drug therapy; Z90.49 Acquired absence of other specified parts of digestive tract; Z88.0 Allergy status to penicillin; Z98.1 Arthrodesis status; Y93.89 Activity, other specified; Y92.89 Other specified places as the place of occurrence of the external cause; Y99.8 Other external cause status

== ENCOUNTER → 2019-06-06 | Outpatient (CLI) | payer MEDICARE ==
[~2019-06-06] MED LIST changes: +CLEOCIN HCL150 MG PO; +ENBREL50 MG/1 ML INJECTION; +METHOTREXATE 22.5 M1 PO; +PROBIOTIC1 EAC7 PO
[2019-06-06 11:31] LABS: ABSOLUTE BASOPHILS 0.1 thou/uL (0.0-0.2); ABSOLUTE EOSINOPHILS 0.4 thou/uL (0.0-0.7); ABSOLUTE LYMPHOCYTES 3.3 thou/uL (0.8-5.3); ABSOLUTE MONOCYTES 0.8 thou/uL (0.0-1.2); ABSOLUTE NEUTROPHILS 6.7 thou/uL (1.6-8.1); BASOPHILS 0.9 %; EOSINOPHILS 3.8 %; HEMATOCRIT 30.7 % (37.0-47.0); HEMOGLOBIN 9.9 gm/dL (12.0-15.0); LYMPHOCYTES 28.9 %; MCH 26.3 pg (26.0-34.0); MCHC 32.3 g/dL (28.0-37.0); MCV 81.5 fL (80.0-100.0); MONOCYTES 7.5 %; MPV 6.6 fl. (7.2-11.1); NUCLEATED RBCS 0 /100WBC; PLATELET COUNT* 361 thou/uL (150-400); POLYS 58.9 %; RBC 3.76 mil/uL (4.20-5.00); RDW-CV 20.9 % (10.5-14.5); WBC 11.3 thou/uL (4.0-11.0)
[2019-06-06 11:49] LABS: CREATININE 0.9 mg/dL (0.6-1.3); POTASSIUM 4.4 mmol/L (3.5-5.1)
== END ==
LOC: M.LAB 11:06
PROVIDERS: Family Medicine
DX: R60.0 Localized edema (principal)

== ENCOUNTER → 2019-06-24 | Outpatient (CLI) | payer MEDICARE | LOC: M.RAD 11:40 | DX: M25.511 Pain in right shoulder (principal) ==

== ENCOUNTER 2019-08-01 14:26 | Emergency (ER) | payer MEDICARE ==
[~2019-08-01] VITALS: Ht 160 cm; Wt 106.6 kg
[~2019-08-01 14:26] MED LIST changes: +REQUIP 1 MG TABL1 M1 PO; -REQUIP0.5 MG PO
[2019-08-01] MEDS ORDERED: CALTRATE 600 +1 EAC1 PO (14:41)
[2019-08-01] MEDS ORDERED: VITAMIN B-121000 MC2 PO (14:42)
[2019-08-01] MEDS ORDERED: PROZAC20 M1 PO (14:43)
[2019-08-01 15:00] LABS: ABSOLUTE BASOPHILS 0.1 thou/uL (0.0-0.2); ABSOLUTE EOSINOPHILS 0.2 thou/uL (0.0-0.7); ABSOLUTE LYMPHOCYTES 2.5 thou/uL (0.8-5.3); ABSOLUTE MONOCYTES 0.7 thou/uL (0.0-1.2); ABSOLUTE NEUTROPHILS 8.2 thou/uL (1.6-8.1); BASOPHILS 0.6 %; EOSINOPHILS 1.8 %; HEMATOCRIT 31.8 % (37.0-47.0); HEMOGLOBIN 10.3 gm/dL (12.0-15.0); LYMPHOCYTES 21.3 %; MCH 26.4 pg (26.0-34.0); MCHC 32.5 g/dL (28.0-37.0); MCV 81.2 fL (80.0-100.0); MONOCYTES 6.3 %; MPV 6.6 fl. (7.2-11.1); NUCLEATED RBCS 0 /100WBC; PLATELET COUNT* 387 thou/uL (150-400); RBC 3.92 mil/uL (4.20-5.00); WBC 11.7 thou/uL (4.0-11.0)
[2019-08-01 15:12] LABS: APTT 29.2 Seconds (25.0-31.3); CALCIUM 8.2 mg/dL (8.5-10.1); CREATININE 0.8 mg/dL (0.6-1.3); POTASSIUM 3.5 mmol/L (3.5-5.1); PROTIME 9.8 Seconds (9.20-11.50)
[2019-08-01 15:22] LABS: ALBUMIN 3.7 g/dL (3.4-5.0); MAGNESIUM 2.2 mg/dL (1.8-2.4); TOTAL BILIRUBIN 0.3 mg/dL (<0.1-1.0); TOTAL PROTEIN 7.8 g/dL (6.4-8.2)
--- NOTE | 2019-08-01 15:33 | EKG ---
[place] [address] ELECTROCARDIOGRAM REPORT Name: ROBERT MINER Room: [facility]#: [id number] Admission: 08/01/19 Attend Phys: Discharge: Date of : 48 Date of Service: 08/01/19 1433 Report #: [id number] THIS REPORT FOR: //name// [facility] ED Test Date: 2019-08-01 Test Time: 14:33:45 Pat Name: ROBERT MINER Department: Room: Gender: Warm In Worker: [facility] : 1950 Requested By: Bill Huang Order Number: [id number] MD: Teodoro Manzo Measurements Intervals [place] Rate: 80 P: 43 AL: 160 QRS: 0 QRSD: 92 T: 62 QT: 393 QTc: 454 Interpretive Statements Sinus rhythm Compared to ECG 07/25/2018 14:19:45 Left ventricular hypertrophy no longer present Electronically Signed On 08-01-2019 15:32:21 CDT by Teodoro Manzo [email or web address] <ELECTRONICALLY SIGNED> By: Teodoro Manzo MD, [facility] 08/01/19 1532 1433 1433 Teodoro Manzo MD, FAC /EPI
[2019-08-01 15:38] LABS: OVALOCYTES 1+
[2019-08-01 15:39] LABS: ANISOCYTOSIS 2+; MACROCYTES 2+; POLYCHROMASIA 1+
[2019-08-01 15:40] LABS: PLATELET ESTIMATE ADEQUATE
[2019-08-01] MEDS ORDERED: NORCO 5-325 TA1 EAC1 PO (17:33)
[2019-08-01 17:49] VITALS: BP 138/57
--- NOTE | 2019-08-02 11:03 | EKG ---
[place] [address] ELECTROCARDIOGRAM REPORT Name: ROBERT MINER Room: [facility]#: [id number] Admission: 08/01/19 Attend Phys: Discharge: 08/01/19 Date of : 48 Date of Service: 08/01/19 1626 Report #: [id number] THIS REPORT FOR: //name// [facility] ED Test Date: 2019-08-01 Test Time: 16:26:35 Pat Name: ROBERT MINER Department: Room: Gender: Punch Box Tender: ELIZABETH : 1950 Requested By: Bill Huang Order Number: [id number] MD: Dat Rahman Measurements Intervals [place] Rate: 64 P: -5 [place]: 181 QRS: -18 QRSD: 90 T: 14 QT: 419 QTc: 433 Interpretive Statements Sinus rhythm Abnormal R-wave progression, early transition Left ventricular hypertrophy, by voltage Compared to ECG 08/01/2019 14:33:45 Left ventricular hypertrophy now present Electronically Signed On 08-02-2019 11:02:26 CDT by Dat Rahman [email or web address] <ELECTRONICALLY SIGNED> By: Dat Rahman MD, FACC 08/02/19 1102 1626 1626 Dat Rahman MD, [facility] /EPI
== END 2019-08-01 17:50 | disposition home or self-care (01) ==
LOC: M.ERS 14:26
PROVIDERS: Emergency Medicine Emergency Medical Services
DX: M94.0 Chondrocostal junction syndrome [Tietze] (principal); Z88.0 Allergy status to penicillin; Z90.710 Acquired absence of both cervix and uterus; Z90.49 Acquired absence of other specified parts of digestive tract; Z90.89 Acquired absence of other organs; Z96.652 Presence of left artificial knee joint

== ENCOUNTER → 2019-12-12 | Outpatient (CLI) | payer MEDICARE ==
[~2019-12-12] MED LIST changes: +CALTRATE 600 +1 EAC1 PO; +PROZAC20 M1 PO; +VITAMIN B-121000 MC2 PO
== END ==
LOC: M.RAD 11:20
PROVIDERS: ATTEND Orthopaedic Surgery
DX: M25.561 Pain in right knee (principal)

== ENCOUNTER 2020-01-21 16:13 | Emergency (ER) | payer MEDICARE ==
[~2020-01-21] VITALS: Ht 160 cm; Wt 113.0 kg
[2020-01-21 17:15] LABS: ABSOLUTE BASOPHILS 0.1 thou/uL (0.0-0.2); ABSOLUTE EOSINOPHILS 0.3 thou/uL (0.0-0.7); ABSOLUTE LYMPHOCYTES 1.8 thou/uL (0.8-5.3); ABSOLUTE MONOCYTES 1.8 thou/uL (0.0-1.2); ABSOLUTE NEUTROPHILS 9.1 thou/uL (1.6-8.1); BASOPHILS 0.5 %; EOSINOPHILS 2.4 %; HEMATOCRIT 30.6 % (37.0-47.0); HEMOGLOBIN 9.8 gm/dL (12.0-15.0); LYMPHOCYTES 13.9 %; MCH 26.8 pg (26.0-34.0); MCHC 32.1 g/dL (28.0-37.0); MCV 83.3 fL (80.0-100.0); MONOCYTES 13.7 %; MPV 6.3 fl. (7.2-11.1); NUCLEATED RBCS 0 /100WBC; PLATELET COUNT* 513 thou/uL (150-400); POLYS 69.5 %; RBC 3.67 mil/uL (4.20-5.00); RDW-CV 20.8 % (10.5-14.5)
[2020-01-21 17:27] LABS: APTT 28.7 Seconds (25.0-31.3); CALCIUM 8.7 mg/dL (8.5-10.1); CREATININE 0.8 mg/dL (0.6-1.3); POTASSIUM 4.1 mmol/L (3.5-5.1); PROTIME 10.5 Seconds (9.20-11.50)
[2020-01-21 17:38] LABS: ALBUMIN 3.2 g/dL (3.4-5.0); TOTAL BILIRUBIN 0.3 mg/dL (<0.1-1.0); TOTAL PROTEIN 7.1 g/dL (6.4-8.2)
[2020-01-21 17:52] LABS: PLATELET ESTIMATE INCREASED
[2020-01-21 17:53] LABS: ANISOCYTOSIS 2+; OVALOCYTES 1+
[2020-01-21 18:23] LABS: URINE BILIRUBIN NEGATIVE (Negative); URINE BLOOD NEGATIVE (Negative); URINE CLARITY CLOUDY; URINE COLOR YELLOW; URINE GLUCOSE-RANDOM NEGATIVE (Negative); URINE KETONES TRACE (Negative); URINE LEUKOCYTES-REFLEX TRACE (Negative); URINE NITRITE-REFLEX POSITIVE (Negative); URINE PROTEIN NEGATIVE (Negative); URINE SPECIFIC GRAVITY >= 1.030 (1.005-1.030); URINE UROBILINOGEN 0.2 E.U./dl (0.2-1.0)
[2020-01-21] MEDS ORDERED: LEVAQUIN 500 M500 MG PO (18:23)
[2020-01-21 18:29] LABS: SQUAMOUS >10 Many /LPF (0-3)
[2020-01-21 18:30] LABS: BACTERIA-REFLEX >30 Many /HPF (None Seen); CASTS None Seen /LPF (None Seen); CRYSTALS None Seen /LPF (None Seen); MUCUS >6 Heavy strn/LPF (None Seen); URINE RBC 0-2 Rare /HPF (0-2)
[2020-01-21 18:33] VITALS: BP 119/53
--- NOTE | 2020-01-22 13:01 | EKG ---
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
== END 2020-01-21 18:33 | disposition home or self-care (01) ==
LOC: M.ERS 16:13
PROVIDERS: Family Medicine
DX: J18.9 Pneumonia, unspecified organism (principal); R60.0 Localized edema; R21 Rash and other nonspecific skin eruption; I50.9 Heart failure, unspecified; K21.9 Gastro-esophageal reflux disease without esophagitis; M81.0 Age-related osteoporosis without current pathological fracture; G25.81 Restless legs syndrome; Z90.710 Acquired absence of both cervix and uterus; Z96.611 Presence of right artificial shoulder joint; Z90.49 Acquired absence of other specified parts of digestive tract; Z96.652 Presence of left artificial knee joint; Z88.0 Allergy status to penicillin

== ENCOUNTER 2020-11-22 22:09 | Emergency (ER) | payer MEDICARE ==
[~2020-11-22] VITALS: Ht 160 cm; Wt 97.1 kg
[~2020-11-22 22:09] MED LIST changes: +LEVAQUIN 500 M500 MG PO
[2020-11-23 02:00] VITALS: BP 132/45
--- NOTE | 2020-11-23 15:15 | EKG ---
[place] [address] ELECTROCARDIOGRAM REPORT Name: ROBERT MINER Room: [facility]#: [id number] Admission: 11/22/20 Attend Phys: Discharge: 11/23/20 Date of : 48 Date of Service: 11/22/202210 Report #: [id number] THIS REPORT FOR: //name// 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 Operator: [place] : 1950 Requested By: Bill Huang Order Number: [id number] MD: Hamlet Serrano Measurements Intervals [place] Rate: 83 P: 1 [place]: 172 QRS: -21 QRSD: 89 T: 27 QT: 388 QTc: 456 Interpretive Statements Sinus rhythm Left ventricular hypertrophy Compared to ECG 01/21/2020 16:50:16 No significant changes Electronically Signed On 11-23-2020 15:15:40 CDT by Hamlet Serrano [email or web address] <ELECTRONICALLY SIGNED> By: Hamlet Serrano MD, [facility] 11/23/20 1635 10 10 Hamlet Serrano MD, [facility] /EPI
== END 2020-11-23 02:00 | disposition home or self-care (01) ==
LOC: M.ERS 22:09
DX: S06.0X0A Concussion without loss of consciousness, initial encounter (principal); S00.83XA Contusion of other part of head, initial encounter; K21.9 Gastro-esophageal reflux disease without esophagitis; Z88.0 Allergy status to penicillin; Z79.899 Other long term (current) drug therapy; Z90.49 Acquired absence of other specified parts of digestive tract; Z98.890 Other specified postprocedural states; W18.30XA Fall on same level, unspecified, initial encounter; Y93.89 Activity, other specified; Y92.098 Other place in other non-institutional residence as the place of occurrence of the external cause; Y99.9 Unspecified external cause status